=== PATIENT | female | born 1975 | race Two or more races ===

== ENCOUNTER 2024-04-22 20:00 | Emergency (ER) | payer OTHER, SELFPAY ==
[2024-04-22 20:01] VITALS: BMI 29.1
[2024-04-22 20:15] VITALS: BP 162/95; PULSE 82; RESP 16; TEMP 37.1; O2SAT 99
--- NOTE | 2024-04-22 20:38 | PD.EDFMALE ---
ED Female Urogenital RME/HPI General Chief complaint: Urogenital-Female Stated complaint: BURNING WITH URIANTION AND PRESSURE Time Seen by Provider: 04/22/24 20:09 Arrival date/time: 04/22/24 20:00 48-year-old female with a history of renal stones reports with complaints of sudden onset of dysuria urinary urgency frequency and pelvic pressure. Patient denies fever chills back pain nausea or vomiting hematuria or chance of . Patient reports taking Bactrim x 1 dose today as well as Pyridium x 1 dose today. Patient states that these are old medications that she has had from a previous infection Limitations: no limitations Related Data Home Medications ?Medication ?Instructions ?Recorded ?Confirmed cetirizine 10 mg tablet (Zyrtec) 10 mg PO QDAY PRN 09/12/23 09/12/23 gabapentin 300 mg capsule 300 mg PO QHS 09/12/23 09/12/23 Previous Rx's ?Medication ?Instructions ?Recorded phenazopyridine 200 mg tablet 200 mg PO TID PRN pain 3 days #10 04/22/24 (Pyridium) tabs sulfamethoxazole 800 1 tab PO BID 10 days #20 tabs 04/22/24 mg-trimethoprim 160 mg tablet (Bactrim DS) Allergies Allergy/AdvReac Type Severity Reaction Status Date / Time NKA* Allergy Uncoded 09/12/23 15:14 Review of Systems Constitutional Constitutional: Denies chills, Denies fever(s) and Denies headache(s) ENT Ears, Nose, Mouth, and Throat: Denies dizziness and Denies headache(s) Cardiovascular Cardiovascular: Denies chest pain and Denies dyspnea Respiratory Respiratory: Denies cough and Denies dyspnea Gastrointestinal Gastrointestinal: Denies nausea and Denies vomiting Genitourinary Genitourinary: Denies abnormal menses, Reports dysuria, Denies flank pain and Reports urinary hesitancy Musculoskeletal Musculoskeletal: Denies back pain and Denies myalgias Integumentary/Breasts Skin/Breast: Denies erythema and Denies rash Neurologic Neurologic: Denies dizziness and Denies headache(s) Hematologic/Lymphatic Hematologic/Lymphatic: Denies easy bleeding and Denies easy bruising Past Medical History Past Medical History CARDIAC: Negative Congestive Heart Failure RESPIRATORY: Negative Chronic Obstructive Pulmonary Disease (COPD) GENITOURINARY: Negative Renal Disease ENDOCRINE: Negative Diabetes Mellitus Type 1 or Diabetes Mellitus Type 2 Surgical History SURGICAL: Positive Hysterectomy Social History SMOKING STATUS: Never smoker ED Exam General Limitations: Present no limitations General appearance: Present alert and in no apparent distress Chest Chest inspection: Present normal inspection and symmetric chest wall rise Respiratory Respiratory exam: Present normal lung sounds bilaterally Cardiovascular Cardiovascular exam: Present regular rate, normal rhythm and normal heart sounds Abdominal Exam Abdominal exam: Present soft, tenderness and normal bowel sounds; Absent guarding, rebound, organomegaly, mass or bruit Abdominal tenderness: Present suprapubic Back Exam Back exam: Present normal inspection and full ROM Neurological Exam Neurological exam: Present alert, oriented X3 and CN II-XII intact Psychiatric Psychiatric exam: Present normal affect and normal mood Skin Skin exam: Present warm, dry, intact and normal color Course Quality Measures none Orders Category Date Time Status HCG Qualitative,Urine Stat Lab 04/22/24 20:41 Completed UA, C/S IF [Urinalysis, C/S if Indicated] Stat Lab 04/22/24 20:41 Completed Urine Culture Stat Lab 04/22/24 20:41 Received Vital Signs Vital signs: Vital Signs Temperature 98.7 F 04/22/24 20:15 Pulse Rate 82 04/22/24 20:15 Respiratory Rate 16 04/22/24 20:15 Blood Pressure 162/95 H 04/22/24 20:15 Pulse Oximetry (%) 99 04/22/24 20:15 Oxygen Delivery Method Room Air 04/22/24 20:15 Urogenital - Female Patient data External records reviewed:: None Clinical information provided by:: patient Social determinants that could affect healthcare access:: none Patient has the following chronic illnesses:: none How is presenting disease/condition affected by chronic disease/condition?: no chronic disease Evaluation data The following diagnostics were reviewed and interpreted by me:: lab results Lab and/or radiology exams considered but not ordered:: CT abd pelvis Interpretation Summary: Urinalysis significant for acute cystitis Medications / Prescriptions Medications or Prescriptions considered but not ordered:: None Medication administrations:: Rocephin and Pyridium Consultations Consultation(s) initiated? (list below): No Diagnosis Urogenital Female Differential Diagnosis: urinary tract infection, bacterial vaginosis, cervicitis, vaginitis and cystitis Most likely diagnosis given after review of the tests above:: Acute cystitis Admission Indicated Admission indicated?: not indicated Admission Request Was there a request for admission?: No Disposition Plan Disposition Plan: Discharge Discharge Attestation Discharge Attestation: The patient and all family members were given an opportunity to ask questions and understood the discharge instructions. Discharge instructions specifically effects, indications for sooner follow up or return to the emergency department, and the expected course of current diagnosis. Patient condition: Stable Discharge Plan Plan Patient Disposition: HOME (Self Care) Prescriptions/Referrals Prescriptions/Med Rec: New sulfamethoxazole-trimethoprim [Bactrim DS] 800-160 mg tablet 1 tab PO BID 10 Days Qty: 20 0RF phenazopyridine [Pyridium] 200 mg tablet 200 mg PO TID PRN (Reason: pain) 3 Days Qty: 10 0RF No Action gabapentin 300 mg capsule 300 mg PO QHS cetirizine [Zyrtec] 10 mg tablet 10 mg PO QDAY PRN Referrals: Temporary Provider,ED [Physician] - In 1 week Problem List Clinical Impression: Acute cystitis Patient/Caregiver Discharge Instructions Discharge Activity: activity as tolerated Education Materials: ED CYSTITIS Female Adult Additional Instructions: Take medication as directed drink lots of water follow-up with your primary care provider if no improvement in 3 days with the medication Print Language: Pashto Stand Alone Forms: [facility]ett Award Info., Patient Portal Info Letter
[2024-04-22 20:52] LABS: Collection Type, Urine Clean Catch
[2024-04-22 20:56] LABS: HCG Qualitative,Urine Negative
[2024-04-22 21:10] LABS: Bacteria,Urine 1+; Bilirubin,Urine Negative (Negative); Blood,Urine 3+ (Negative); Budding Yeast,Urine Present; Clarity,Urine Turbid (Clear/Hazy); Color,Urine Drk-Yellow (Lt Yel-Yel); Glucose, Urine Negative (Negative); Hyaline Casts,Urine < 1 /hpf (0-1); Ketones,Urine Negative (Negative); Leukocyte Esterase,Urine Positive (Negative); Nitrite,Urine Negative (Negative); PH,Urine 6.5 (5.0-7.0); Protein,Urine Trace (Neg - Trace); RBC,Urine 7 /hpf (0-3); Specific Gravity,Urine 1.005 (1.001-1.035); Squamous Epithelial Cell,Urine 4 /hpf (0-5); Urobilinogen,Urine Negative mg/dL (0.0-1.0); WBC,Urine 219 /hpf (0-5)
[2024-04-22 21:11] LABS: Culture Indicated,Urine Yes
[2024-04-22] MEDS: cefTRIAXone 1,000 MG, LIDOCAINE 1% 20 ML 2.1 ML IM (22:28)
== END 2024-04-22 22:42 | disposition home or self-care (01) ==
PROVIDERS: Physician Assistant; Emergency Provider Emergency Medicine; PCP Physician Assistant
DX: N30.00 Acute cystitis without hematuria (principal)
CPT/HCPCS: 81001; 81025; 87077; 87086; 87186; 96372; 99283; J0696; J3490